=== PATIENT | female | born 1955 | race African-American/Black ===

== ENCOUNTER → 2016-05-09 | Day surgery (SDC) | payer MEDICARE, MEDICAID ==
[2016-05-09] VITALS (9 sets, daily range): BP systolic 148–196; BP diastolic 81–96
[~2016-05-09] VITALS: Ht 165.1 cm; Wt 72.1 kg
[~2016-05-09] MED LIST: Atropine Sulfate 3.5gm Oint ONE; Avastin 10mg Inj IVITRE ONE; BIDIL TABLET1 EACH PO; BP MED PO; BSS 15ml BTL ONE; BSS 500ml btl ONE; Bupivacaine 0.75% 30ml vial INJ ONE; Cyclopentolate 1% Opth Sol ONE; Dexamethasone 4mg/ml vial ONE; DiphenhydrAMINE 50mg/ml Inj IVP PRN; EPINEPHrine 1mg/1ml Amp ONE; Flurbiprofen 0.03% Opth Sol 2.5ml ONE; Gatifloxacin Opth Solution 0.5% ONE; Kenalog-10 5ml Inj ONE; Kenalog-40 1ml Vial ONE; LANTUS100 UNIT/2 SUBQ; LISINOPRIL20 MG ORAL; LR 1000ml 1,000 ML IVLG SCH; LR 1000ml ONE; Lidocaine 2% MPF 5ml Vial INJ ONE; METHADONE HCL10 MG PO; MIRTAZAPINE30 MG ORAL; Maxitrol Opth Oint 3.5gm ONE; Midazolam 2mg/2ml Inj ONE; NOVOLOG100 UNIT/3 SUBQ; NS Irrig 1000ml ONE; Norco 5mg/325mg tab ORAL PRN; Phenylephrine 2.5% Op Soln ONE; Povidone-Iodine 5% opth solution ONE; Pred Forte 1% Opth Susp 1ml BOTH EYES ONE; Pred Forte 1% Opth Susp 1ml ONE; Propofol 10mg/ml 20ml IV ONE; Sodium Hyaluronate 10 mg/ml 0.85ml ONE; Sterile Water Irrig 1000ml IRRIG ONE; Tetracaine 0.5% Opth Soln ONE; Triamcinolone 40mg/ml PF Vial ONE; VERAPAMIL SR120 MG PO; fentaNYL 100 mcg/2 mL IV ONE; fentaNYL 100 mcg/2 mL IV PRN
[2016-05-09] MEDS: Gatifloxacin Opth Solution 0.5% LEFT EYE SCH ×3 (06:43→07:04)
[2016-05-09] MEDS: Cyclopentolate 1% Opth Sol BOTH EYES SCH ×3 (06:43→07:04)
[2016-05-09] MEDS: Flurbiprofen 0.03% Opth Sol 2.5ml BOTH EYES SCH ×3 (06:44→07:04)
[2016-05-09] MEDS: Phenylephrine 2.5% Op Soln BOTH EYES SCH ×3 (06:44→07:04)
[2016-05-09 06:56] LABS: EOSINOPHILS % (AUTO) 0.5 % (0.0-3.0); LYMPHOCYTES % (AUTO) 19.2 % (20.0-45.0); MEAN CORPUSCULAR HEMOGLOBIN 32.1 PG (27.0-31.0); MEAN CORPUSCULAR HGB CONC 30.7 G/DL (32.0-36.0); MEAN CORPUSCULAR VOLUME 105 FL (80-99); MEAN PLATELET VOLUME 6.8 FL (6.5-10.1); MONOCYTES % (AUTO) 10.6 % (1.0-10.0); NEUTROPHILS % (AUTO) 68.7 % (45.0-75.0); PLATELET COUNT 274 K/UL (150-450); RED BLOOD COUNT 4.38 M/UL (4.20-5.40); RED CELL DISTRIBUTION WIDTH 14.7 % (11.6-14.8); WHITE BLOOD COUNT 6.8 K/UL (4.8-10.8)
[2016-05-09 07:06] LABS: PROTHROMBIN TIME 10.2 SEC (9.30-11.50)
[2016-05-09 07:08] LABS: CALCIUM 8.1 mg/dL (8.6-10.2); CREATININE 1.5 mg/dL (0.5-0.9); GLOMERULAR FILTRATION RATE 43.3 mL/min (>60); POTASSIUM 4.5 mEQ/L (3.4-4.9)
--- NOTE | 2016-05-09 07:36 | Anethesia Preoperative Eval ---
Anesthesia Pre-op PMH/ROS General Date of Evaluation: May 09, 2016 Time of Evaluation: 07:33 Anesthesiologist: Zaid ASA Score: ASA 3 Mallampati Score Class I : Soft palate, uvula, fauces, pillars visible Class II: Soft palate, uvula, fauces visible Class III: Soft palate, base of uvula visible Class IV: Only hard plate visible Mallampati Classification: Class III Surgeon: Dahlia Diagnosis: L eye retinopathy Surgical Procedure: L eye PPV laser treatment Anesthesia History: none Social History: current smoker Family History: no anesthesia problems Allergies: Coded Allergies: PENICILLIN G (Verified Allergy, 01/13/13) Medications: see eMAR Past Medical History Cardiovascular: Reports: HTN, other - chf, Denies: CAD, MA, arrhythmia, valve dz Pulmonary: Reports: COPD Gastrointestinal/Genitourinary: Reports: CRI, GERD, Denies: ESRD, other Neurologic/Psychiatric: Reports: depression/anxiety, Denies: CVA, TIA, dementia, other Endocrine: Reports: DM, Denies: hypothyroidism, other, steroids HEENT: Reports: other Hematology/Immune: Denies: DVT, anemia, bleeding disorder, other Musculoskeletal/Integumentary: Denies: DDD, DJD, OA, RA, edema, other Other: other PMH Narrative: as above PSxH Narrative: Bilateral eye Sx Anesthesia Pre-op Phys. Exam Physician Exam Last Vital Signs Date Time Temp Pulse Resp B/P Pulse Ox O2 Delivery O2 Flow Rate FiO2 05/09/16 06:57 98.5 65 17 154/81 93 Room Air Constitutional: NAD Neurologic: CN 2-12 intact Cardiovascular: RRR, no M/R/G, other - Gr. 2 bilateral legs edema Respiratory: other - some wheezing Airway Exam Mallampati Score: Class II MO: limited ROM: limited Teeth: missing Dentures: no lower, no upper Anesthesia Pre-op A/P Labs Hematology Test 05/09/16 06:30 White Blood Count 6.8 K/UL (4.8-10.8) Red Blood Count 4.38 M/UL (4.20-5.40) Hemoglobin 14.1 G/DL (12.0-16.0) Hematocrit 45.9 % (37.0-47.0) Mean Corpuscular Volume 105 FL (80-99) H Mean Corpuscular Hemoglobin 32.1 PG (27.0-31.0) H Mean Corpuscular Hemoglobin Concent 30.7 G/DL (32.0-36.0) L Red Cell Distribution Width 14.7 % (11.6-14.8) Platelet Count 274 K/UL (150-450) Mean Platelet Volume 6.8 FL (6.5-10.1) Neutrophils (%) (Auto) 68.7 % (45.0-75.0) Lymphocytes (%) (Auto) 19.2 % (20.0-45.0) L Monocytes (%) (Auto) 10.6 % (1.0-10.0) H Eosinophils (%) (Auto) 0.5 % (0.0-3.0) Basophils (%) (Auto) 1.0 % (0.0-2.0) Coagulation Test 05/09/16 06:30 Prothrombin Time 10.2 SEC (9.30-11.50) Prothromb Time International Ratio 1.0 (0.9-1.1) Activated Partial Thromboplast Time 26 SEC (23-33) Chemistry Test 05/09/16 06:30 Sodium Level 141 mEQ/L (135-145) Potassium Level 4.5 mEQ/L (3.4-4.9) Chloride Level 104 mEQ/L (98-107) Carbon Dioxide Level 28 mEQ/L (20-30) Anion Gap 9 (5-15) Blood Urea Nitrogen 28 mg/dL (7-23) H Creatinine 1.5 mg/dL (0.5-0.9) H Estimat Glomerular Filtration Rate 43.3 mL/min (>60) Glucose Level 227 mg/dL (74-106) H Calcium Level 8.1 mg/dL (8.6-10.2) L Studies Pre-op Studies: EKG - SR Risk Assessment & Plan Assessment: ASA 3 Plan: GA with LMA surgeon request Status Change Before Surgery: No Pre-Antibiotics Drug: none CLARISSE HERNANDEZ M.D. May 09, 2016 07:36
--- NOTE | 2016-05-09 07:53 | Pre-Procedure Note/Attestation ---
Pre-Procedure Note/Attestation Complete Prior to Procedure Planned Procedure: bilateral Procedure Narrative: PPV, Membrane peel. endolaser, Avastin L eye. Laser indirect ophthalmoscopy R eye. Indications for Procedure Pre-Operative Diagnosis: Vitreous heme OS. Proliferative Diabetic Retinopathy OU. Attestation I attest that I discussed the nature of the procedure; its benefits; risks and complications; and alternatives (and the risks and benefits of such alternatives ), prior to the procedure, with the patient (or the patient's legal auto claim representative). I attest that, if there was a reasonable possibility of needing a blood transfusion, the patient (or the patient's legal auto claim representative) was given the [place] [employer] standardized written summary, pursuant to the [place] Blood Safety Act ([place] Health and Safety Code # 1645, as amended). I attest that I re-evaluated the patient just prior to the surgery and that there has been no change in the patient's H&P, except as documented below: MARION RICHARDS May 09, 2016 07:52
--- NOTE | 2016-05-09 08:52 | Brief Operative Note ---
Immediate Post Operative Note Operative Note Pre-op Diagnosis: Vitreous heme OS. Proliferative Diabetic Retinopathy OU. Procedure: PPV, endolaser (1146), Avastin injection (1.25 mg) OS Laser Indirect Ophthalmoscopy OD 1016 spots Post-op Diagnosis: same as pre-op Surgeon: vandana Anesthesiologist: shima Anesthesia: MAC Specimen: none Complications: none Condition: stable Estimated Blood Loss: none Drains: none Implant(s) used?: No MARION RICHARDS May 09, 2016 08:52
--- NOTE | 2016-05-09 09:57 | Pre-op HX & Phy Repo 2 SIG ---
DATE OF ADMISSION: 05/09/2016 PRESURGICAL HISTORY AND PHYSICAL: REASON FOR EVALUATION: I was asked by Dr. Raul Villagomez M.D. to see 60-year-old female, who is going for elective surgery on the left eye. The patient has vitreous hemorrhage, left eye. Please see full Ophthalmology History and Physical by Dr. Raul Villagomez. The patient was examined and chart was reviewed. PAST MEDICAL HISTORY/REVIEW OF SYSTEMS: Remarkable for insulin-dependent diabetes mellitus over the last 18 years, history of hypertension, and chronic obstructive pulmonary disease. Denies history of stroke or seizures. No history of heart attack. Denies history of GI bleeding or heartburn. No history of thyroid problem. Denies history of renal insufficiency or history of anemia. The patient has history of congestive heart failure and start treatment yesterday at doctor's office give no leaks and mouth clear. SURGICAL HISTORY: Tubal ligation and two eye surgery last two years ago. FAMILY HISTORY: Mother from complication of heart problem and father of old age. [facility] facility. ALLERGIES: To penicillin developed itching. MEDICATIONS: Include lisinopril, verapamil, methadone, NovoLog 14 units daily, Lasix, and potassium start yesterday and also patient's take Bidil, hydralazine. HABITS: The patient smoke pack a day for 20 years. Denied alcohol or street drug use. PHYSICAL EXAMINATION: GENERAL: Alert well-developed, well-nourished female, appears to the 50s no acute distress. VITAL SIGNS: Blood pressure 154/81, temperature 97.2, pulse 65 and regular, respirations 17 per minute, O2 saturation 92% on room air. After we start O2 nasal two liters, the patient's O2 saturation was 95%. SKIN: Warm and dry. No rashes. LYMPHATICS: Lymph nodes are not enlarged. HEENT: Head, normocephalic. Ears, clear. Eyes, full description per Dr. Raul Villagomez. Mouth, clear. Dry upper dentures. NECK: No jugular distention. Carotids are 2+. No palpable mass. Thyroid gland not enlarged. CHEST: No deformity or asymmetry. LUNGS: Clear. No rales or rhonchi. HEART: Sinus rhythm at 65 per minute. No murmur. No S3 or S4. ABDOMEN: Soft, benign. Liver and spleen not enlarged. No rebound. EXTREMITIES: +2 ankle edema. No lysis. No ulcer. GENITOURINARY TRACT: Normal for gender. CVA nontender. NEURO SYSTEM: No tremor. No nystagmus. LABORATORY DATA: Today, sodium 141, potassium 4.5, chloride 104, BUN 28, creatinine 1.5, and GFR estimated at 43.3, blood sugar 227, and calcium 8.1. CBC, white blood cells 6.6, hemoglobin 14.1, hematocrit 45.9. ProTime 10.2. INR 1.0. ECG normal sinus rhythm at 65 per minute, left atrial enlargement, left ventricle hypertrophy. IMPRESSION: 1. Vitreous hemorrhage, left eye. 2. Insulin-dependent diabetes mellitus. 3. Chronic obstructive pulmonary disease. 4. Congestive heart failure secondary to hypertension. 5. Chronic renal insufficiency stage II and III secondary to diabetes and hypertension. PLAN: Endolaser, Avastatin injection, indirect laser left eye per Dr. Raul Villagomez. CONCLUSION: The patient has insulin-dependent diabetes and hypertension. No control. The patient has a chronic kidney disease stage 2 to 3 secondary to hypertension and diabetes. The patient's vital signs are stable. O2 saturation borderline 92% on room air. We gave the patient 2 liters and O2 saturation improved to smoking cessation and continue Lasix and potassium primary care physician. The patient's condition optimized for surgery. She did not eat or drink from last night. Thank you very much, Dr. Villagomez, for privilege to participate in surgical care of this interesting patient. Nancy Martin M.D. DR: MORENA JOB#: [id number] CC:
--- NOTE | 2016-05-09 10:01 | Immediate Post-Op Evaluation ---
Immediate Post-Op Evalulation Immediate Post-Op Evalulation Procedure: L eye PPV membrane peel laser treatment Date of Evaluation: May 09, 2016 Time of Evaluation: 08:57 IV Fluids: 200 Blood Products: none Estimated Blood Loss: none Urinary Output: none Blood Pressure Systolic: 176 Blood Pressure Diastolic: 86 Pulse Rate: 78 Respiratory Rate: 24 O2 Sat by Pulse Oximetry: 96 Temperature (Fahrenheit): 97.6 Pain Score (1-10): 1 Nausea: No Vomiting: No Complications none Patient Status: reacts, patent, none Hydration Status: adequate CLARISSE HERNANDEZ M.D. May 09, 2016 10:01
--- NOTE | 2016-05-09 10:39 | 48 Hour Post Anesthesia Eval ---
Post Anesthesia Evaluation Procedure: L eye PPV membrane peel laser treatment Date of Evaluation: May 09, 2016 Time of Evaluation: 10:38 Blood Pressure Systolic: 148 0: 82 Pulse Rate: 75 Respiratory Rate: 22 Temperature (Fahrenheit): 97.6 O2 Sat by Pulse Oximetry: 96 Nausea: No Vomiting: No Pain Intensity: 1 Hydration Status: adequate Cardiopulmonary Status: stable Mental Status/LOC: patient returned to baseline Follow-up Care/Observations: n/a Post-Anesthesia Complications: none Follow-up care needed: ready to discharge CLARISSE HERNANDEZ M.D. May 09, 2016 10:39
--- NOTE | 2016-05-09 11:57 | Operative Note - Dictated ---
DATE OF OPERATION: 05/09/2016 POSTOPERATIVE DIAGNOSES: 1. Severe proliferative diabetic retinopathy, both eyes. 2. Vitreous hemorrhage, left eye. PROCEDURES PERFORMED: Left eye pars plana vitrectomy, endolaser, and Avastin injection. PROCEDURES PERFORMED: Right eye laser indirect ophthalmoscopy. JUSTIFICATION FOR SURGERY: This 60-year-old lady with severe proliferative retinopathy has shown persistent recurrent hemorrhaging in the left eye. Because of a small pupil laser on the right eye and a far periphery has been difficult to do. She is admitted for laser right eye vitrectomy and laser left. BRIEF NOTE: The patient was brought to the operative room, placed operating room table in supine position. After a time out was agreed upon by the staff and LMA anesthesia induced by Dr. Mar. Retrobulbar and Van Lint blocks were given in the left eye. Prior to prepping and draping, a lid speculum was inserted into the right eye and using the laser indirect ophthalmoscopy under direct visualization. A total of 1016 lesions were applied in the far periphery and lightly treated retina. Gentamicin and prednisolone drops were applied in this eye was taped prior to prepping and draping the left. Once the draping was completed, a lid speculum inserted into the left eye. Using a 23-gauge trocar system, cannulas were placed in all except the infratemporal quadrant. Infusion secured inferotemporally. Vitrectomy was begun posterior to the lens implant removing clotted blood and enlarging the capsule. Using the wide-angle viewing system a additional peripheral vitrectomy was performed leaving a small vitreous skirt. The endolaser was brought to the eye and a power of 0.3 hernández duration 0.2 seconds. A total of 1046 lesions were applied in the far periphery in retina that was previously lightly treated. No problems were encountered. Scleral depression also showed no peripheral pathology of note. At this juncture, Avastin 1.25 mg was injected through the infusion line. All cannulas were then removed. The wound was noted to be self-sealing. Subconjunctival Decadron and gentamicin were injected inferiorly and Maxitrol and atropine ointments were instilled. The eye was patched and shielded. The patient was taken to recovery in excellent condition. No complications. Raul Villagomez M.D. DR: Erik JOB#: [id number] CC: Raul Villagomez M.D. MTDRichmond
--- NOTE | 2016-05-10 20:27 | Cardiology Report ---
APPROVED REPORT EKG Measurement Heart [id number] [place] [id number] [id number] Normal sinus rhythm Possible Left atrial enlargement Left ventricular hypertrophy with repolarization abnormality Abnormal ECG
== END | disposition home or self-care (01) ==
LOC: SUR 05:38
DX: H43.12 Vitreous hemorrhage, left eye (principal); E10.3593 Type 1 diabetes mellitus with proliferative diabetic retinopathy without macular edema, bilateral; Z79.4 Long term (current) use of insulin; J44.9 Chronic obstructive pulmonary disease, unspecified; E10.22 Type 1 diabetes mellitus with diabetic chronic kidney disease; I13.0 Hypertensive heart and chronic kidney disease with heart failure and stage 1 through stage 4 chronic kidney disease, or unspecified chronic kidney disease; I50.9 Heart failure, unspecified; N18.3 Chronic kidney disease, stage 3 (moderate); F32.9 Major depressive disorder, single episode, unspecified; F41.9 Anxiety disorder, unspecified; Z88.0 Allergy status to penicillin; Z79.891 Long term (current) use of opiate analgesic; Z79.899 Other long term (current) drug therapy; Z87.891 Personal history of nicotine dependence
CPT/HCPCS: 36415; 67039; 67228; 80048; 82962; 85025; 85610; 85730; 93005; J0171; J1100; J2250; J2704; J3010; J3301; J3470; J3490; J7120; J9035; 94003; 94150; J3300